=== PATIENT | male | born 1960 | race Caucasian/White ===

== ENCOUNTER 2019-11-28 11:15 | Emergency (ER) | payer OTHER, SELFPAY ==
[2019-11-28 11:29] VITALS: BP 160/104; PULSE 81; RESP 16; TEMP 36.9; O2SAT 98; BMI 33.4
--- NOTE | 2019-11-28 11:43 | ED_ITS ---
HPI - General Adult <EUN PichardoP - Last Filed: 11/28/19 12:43> General Chief complaint: Hypertension Stated complaint: High BP, 159/109 last reading Time Seen by Provider: 11/28/19 11:26 Source: patient Mode of arrival: Family Vehicle Limitations: no limitations History of Present Illness HPI narrative: This is a 59-year-old female, nonsmoker, who has history of hypertension presents to ED with his significant other with concerns for elevated blood pressure. Patient reports this morning he checked his blood pressure and saw reading as 159/105 and got him real concerned. Patient usually takes his blood pressure medication eye cruzito started at evening time and decided to take additional dose 1 hour ago before coming into ED. patient denies chest pain, breathing difficulty, stroke-like symptoms, recent weight gain or leg swelling, dizziness but mild temporal headache. Patient denies vision changes, fever, chills, nausea or vomiting. Patient reports he had steak dinner last night and probably he had taken additional salt intake. Related Data Home Medications Medication Instructions Recorded Confirmed irbesartan 75 mg PO DAILY 11/28/19 11/28/19 Allergies Allergy/AdvReac Type Severity Reaction Status Date / Time No Known Drug Allergies Allergy Verified 11/28/19 11:38 Review of Systems <Domenico HurtRoxannaCAROLE Naidu - Last Filed: 11/28/19 12:43> Review of Systems Narrative: General: Denies fever, chills, fatigue, malaise, sweats. HEENT: Denies sinus pain, ear pain, sore throat, difficulty swallowing, dizziness. Respiratory: Denies dyspnea, cough, wheezing, hemoptysis, sputum. Cardiovascular: Denies chest pain, palpitations, orthopnea, edema. Gastrointestinal: Denies nausea, vomiting, abdominal pain, diarrhea, constipation, melena. : Denies dysuria, frequency, incontinence, hematuria, urinary retention. Musculoskeletal: Denies weakness, joint pain or bony pain. Skin: Denies rash, skin lesions, or other. Neurologic: Denies weakness, (+) mild temporal headache, numbness, change in speech, confusion, seizures, incoordination. Psychiatric: No concerning psychosocial issues. 12-point review of systems is negative except for those stated above. Patient History <CAROLE Pichardo - Last Filed: 11/28/19 12:43> Medical History (Updated 11/28/19 @ 12:35 by CAROLE Pichardo) Hypertension (Acute) Social History Smoking Status: Never smoker Smoking Status: Never smoker alcohol intake frequency: 0-2 drinks per day Substance Use Type: does not use Exam <CAROLE Pichardo - Last Filed: 11/28/19 12:43> Narrative Exam Narrative: GEN: Alert, oriented x 3, well appearing and nourished, and in no acute distress. Head: Normal cephalic, atraumatic. No scalp or temporal tenderness, palpable mass or rash. EYES: Pupils are equal, round, and reactive to light and accommodation. Extraocular muscles are intact bilaterally. There is no subconjunctival hemorrhage, exudate and sclera non-icteric. ENT: Hearing grossly intact. Nose without bleeding, purulent discharge, septal hematoma or deviation. Turbinate without erythema or swelling. Facial sinuses nontender to palpate. Mucous membrane moist, no mucosal lesion. Throat without erythema, tonsillar hypertrophy or exudate. Uvula in midline, airway patent. Neck: Trachea in midline. No JVD, non-tender without lymphadenopathy. No masses or thyroid megaly. Supple, non-tender and no meningeal signs. CARDIAC: Normal regular rate and rhythm without murmurs, gallops, or rubs. No chest wall tenderness. No peripheral edema, cyanosis or pallor. Capillary refill is less than 2 seconds. No carotid bruits. RESPIRATORY: Lungs are cleat to auscultate bilaterally. No cough, wheezes, rales, or rhonchi. No stridor, respiratory distress, increase work of breathing, or accessary muscle used. ABD: Abdomen soft, nontender and non-distended. No guarding or rebound tenderness to palpate. Bowel sounds are normal in all 4 quadrants. There is no palpable masses or organomegaly. EXT: Full painless ROM of all extremities with no loss of sensation, strength, effusion or edema. SKIN: Warm, dry, normal color for patient. No erythema, lesions or rash. BACK: Nontender without deformity or crepitance. No flank tenderness. NEUROLOGICAL: Alert and oriented to place, time and person. No facial droops, dysphasia. CN II-XII intact. Strength and sensation symmetric and intact throughout. Reflexes 2+ throughout. Cerebellar testing normal. PSYCHIATRIC: Good judgement and reason, without hallucinations, abnormal affect or abnormal behaviors during the examination. Patient is not suicidal. Initial Vital Signs Initial Vital Signs: Vital Signs Temperature 98.5 F 11/28/19 11:29 Pulse Rate 81 11/28/19 11:29 Respiratory Rate 16 11/28/19 11:29 Blood Pressure 160/104 H 11/28/19 11:29 Pulse Oximetry 98 11/28/19 11:29 <Ebenezer Katz MD - Last Filed: 11/29/19 08:04> Initial Vital Signs Initial Vital Signs: Vital Signs Temperature 98.5 F 11/28/19 11:29 Pulse Rate 81 11/28/19 11:29 Respiratory Rate 16 11/28/19 11:29 Blood Pressure 160/104 H 11/28/19 11:29 Pulse Oximetry 98 11/28/19 11:29 Scores <CAROLE Pichardo - Last Filed: 11/28/19 12:43> GCS [place] coma scale eye opening: Spontaneous William coma scale verbal response: Orientated William coma scale motor response: Obey commands Merr[place] coma scale total score: 15 Course <CAROLE Pichardo - Last Filed: 11/28/19 12:43> Orders Ordered: ED Orders 11/28/19 11:43 EKG-12 Lead Stat Vital Signs Vital signs: Vital Signs - 8 hr 11/28/19 11:29 11/28/19 12:00 11/28/19 12:32 Temperature 98.5 F Pulse Rate 81 78 79 Respiratory Rate 16 20 12 Blood Pressure 160/104 H Blood Pressure [Left Arm] 136/86 131/89 Pulse Oximetry 98 96 96 <Ebenezer Katz MD - Last Filed: 11/29/19 08:04> Orders Ordered: ED Orders 11/28/19 11:43 EKG-12 Lead Stat Vital Signs Vital signs: Vital Signs - 8 hr 11/28/19 11:29 11/28/19 12:00 11/28/19 12:32 Temperature 98.5 F Pulse Rate 81 78 79 Respiratory Rate 16 20 12 Blood Pressure 160/104 H Blood Pressure [Left Arm] 136/86 131/89 Pulse Oximetry 98 96 96 Medical Decision Making <CAROLE Pichardo - Last Filed: 11/28/19 12:43> Differential Diagnosis Differential Diagnosis: Hypertension Medical Records Medical records reviewed: Yes I reviewed the patient's medical records. ECG Data Attestation: I personally reviewed and interpreted this ECG as follows: Prior ECG tracings: not available for review Interpretation: Sinus rhythm rate at 79. Normal [place]. [place] interval 156, QRS duration 90, QT/QTC 388 /444. No acute ST changes MDM Narrative Medical decision making narrative: This is a 59-year-old male who presents to ED with concerns for elevated blood pressure up to 159/105 at home when he monitored this morning. Patient states he monitors his blood pressure randomly about 2 to 3 times a week. Patient had taken additional dose of Irbersartan this morning before coming into ED. patient denies cardiac or neurological symptoms but mild temporal headache. EKG is sinus rhythm. Patient's blood pressure has improved to 131/89 in about an hour during ED stay. We discussed in detail about not treating elevated blood pressure without cardiac symptoms and his blood pressure is not in the level of hypertensive crisis. Patient advised to monitor his blood pressure and log before next follow-up with his primary care physician whether his blood pressure medication needs to be adjusted. We also discussed decrease sodium intake and losing weight to manage elevated blood pressure along the pharmacological treatment. Return precautions were discussed with patient and Patient verbalized understanding and agreement with the treatment plan. Discharge Plan Departure Patient Disposition: Home Clinical Impression: Hypertension Qualifiers: Hypertension type: unspecified Qualified Code(s): I10 - Essential (primary) hypertension Discharge Date/Time: 11/28/19 12:41 Instructions: DI for High Blood Pressure Activity Restrictions/Additional Instructions: You have been diagnosed with [elevated blood pressure without cardiac symptoms. Blood pressure has improved while in ED. EKG is normal sinus rhythm]. What to do: *Take your medications as directed. *Follow up with your primary care provider in 2-3 days, call for an appointment. Let them know you were seen in the ED and that we asked you to be seen in follow up. As we discussed, monitor your blood pressure around same time of the day and log these readings and to bring this to next appointment with her primary care physician. *Return to ED if you have any new, worsening, or concerning symptoms, such as [chest pain, breathing difficulty, unable to tolerate fluids, dizziness, vision changes, severe headache, symptoms of stroke, or any acute concerns]. Prescriptions: No Action irbesartan 75 mg tablet 75 mg PO DAILY RF: 0 Referrals: Mary Forrest ARNP [Primary Care Provider] -
[2019-11-28 12:00] VITALS: BP 136/86; PULSE 78; RESP 20; O2SAT 96
[2019-11-28 12:32] VITALS: BP 131/89; PULSE 79; RESP 12; O2SAT 96
== END 2019-11-28 12:41 | disposition home or self-care (01) ==
PROVIDERS: Emergency Provider Nurse Practitioner Family; PCP Internal Medicine
DX: I10 Essential (primary) hypertension (principal)
CPT/HCPCS: 93005; 99282; 99283

== ENCOUNTER → 2020-08-22 07:45 | Outpatient (CLI) | payer OTHER, SELFPAY ==
--- NOTE | 2020-08-22 | DI.ECHO.S_ITS ---
[place] [facility]---------+ [facility] +---------+ : : [address] : : : : [id number] : : : : Phone: [phone] Echocardiogram Report + + :Name: JAKE FUNG Study Date: 08/22/2020 Height: 73 in : :[facility] ReadingLocation: Weight: 255 lb : : Gender: Male BSA: 2.4 m2 : :: 1960 Age: 60 yrs BP: 135/85 mmHg: :Reason For Study: HYPERTENSION : :Ordering Physician: EMA, : :MAIA Performed By: Radha Bradshaw : :Referring: MAIA BOO : + + Interpretation Summary The left ventricle is normal in size. The ejection fraction is estimated to be 60-65%. The right ventricle is mildly dilated. The right ventricular systolic function is normal. No significant valvular pathology seen. Procedure: A two-dimensional transthoracic echocardiogram with color flow and Doppler was performed. The study quality was technically adequate. There is no prior echocardiogram noted for this patient. A contrast injection of Definity was performed to improve assessment of LV function. The patient was in sinus rhythm with heart rates between 78-92 bpm during the exam. Left Ventricle: The left ventricle is normal in size. Left ventricular wall thickness is mildly increased. There is no thrombus. The ejection fraction is estimated to be 60-65%. There are no focal wall motion abnormalities. Diastolic parameters suggest probable normal left ventricular diastolic function and normal filling pressures. Right Ventricle: The right ventricle is mildly dilated. The right ventricular systolic function is normal. Atria: The left atrium is mildly dilated. Right atrial size is normal. There is no Doppler evidence for an interatrial shunt. Mitral Valve: There is mild mitral annular calcification. There is trace mitral regurgitation. Aortic Valve: The aortic valve is trileaflet. The aortic valve opens well. There is no aortic valve stenosis. No aortic regurgitation is present. Tricuspid Valve: The tricuspid valve is normal in structure and function. Pulmonary artery pressures cannot be estimated because of the lack of a measurable TR jet velocity but the IVC suggests a CVP of around 3 mmHg. There is trace tricuspid regurgitation. Pulmonic Valve: The pulmonic valve is not well seen, but is grossly normal. There is no pulmonic valvular regurgitation. Great Vessels: The aortic root is normal size. The dimensions of the ascending aorta are normal. The IVC is of normal diameter and collapses greater than 50% with a sniff. This suggests a low right atrial pressure of 3 mm Hg. Pericardium/ Pleura There is no pericardial effusion. There is an anterior echo-free space consistent with a fat pad. There is no pleural effusion. MMode/2D Measurements & Calculations LVIDd: 4.7 cm LVOT diam: 2.0 cm LVIDs: 3.0 cm Ao root diam: 3.1 cm FS: 36.0 % asc Aorta Diam: 2.9 cm EPSS: 0.67 cm Ao Arch Diam (Prox Trans): 2.7 cm IVSd: 1.2 cm LVPWd: 1.1 cm LV vidales. diameter/BSA (cm/m^2): 2.0 LV sys. diameter/BSA (cm/m^2): 1.3 LA A2 area: 24.9 cm2 RA long axis: 5.0 cm LA A4 area: 24.4 cm2 RA area: 16.8 cm2 LA length (vol): 6.2 cm RA vol: 48.2 ml LA vol: 83.2 ml RA : 20.2 ml/m2 LA vol index: 34.9 ml/m2 IVC diam: 1.6 cm RVD1 (basal): 4.3 cm TAPSE: 1.7 cm Doppler Measurements & Calculations Ao V2 max: 125.1 cm/sec LVOT Max Guillermo: 131.9 cm/sec Ao V2 mean: 92.7 cm/sec LV V1 max P.0 mmHg Ao max P.3 mmHg LV V1 VTI: 23.8 cm Ao mean P.7 mmHg MADISYN(I,D): 2.9 cm2 Ao V2 VTI: 24.6 cm MADISYN(V,D): 3.2 cm2 sev ratio: 0.97 MADISYN indexed to BSA (cm^2/m^2): 1.2 MV E max guillermo: 67.9 cm/sec PA V2 max: 103.0 cm/sec Med Peak E' Guillermo: 7.7 cm/sec PA V2 mean: 70.0 cm/sec E/E' med: 8.8 PA mean P.2 mmHg Lat Peak E' Guillermo: 10.9 cm/sec PA pr(Accel): 32.8 mmHg E/E' lat: 6.2 E/e' average: 7.5 MV dec time: 0.16 sec SVLVOT): 71.8 ml Reading Physician:05:47 PM
== END ==
PROVIDERS: PCP Internal Medicine; Referring Provider Internal Medicine; Visit Provider Internal Medicine Cardiovascular Disease
DX: I10 Essential (primary) hypertension (principal)
CPT/HCPCS: 93306; C8929; Q9957

== ENCOUNTER → 2020-09-15 14:55 | Outpatient (CLI) | payer OTHER, SELFPAY ==
[2020-09-15] MEDS: COVID-19 VACC, Ad26(JANSSEN)/PF 0.5 ML IM (15:01)
== END ==
PROVIDERS: PCP Internal Medicine; Visit Provider Internal Medicine
DX: Z23 Encounter for immunization (principal)
CPT/HCPCS: 0031A; 91303

== ENCOUNTER → 2020-11-14 16:19 | Outpatient (CLI) | payer OTHER, SELFPAY ==
--- NOTE | 2020-11-14 | DI.US.S_ITS ---
PROCEDURE: US PERIPH VENOUS LOW EXTREM LT INDICATIONS: Redness and swelling of the left calf and ankle. Clinical concern for DVT TECHNIQUE: Real-time imaging, as well as color and pulse Doppler interrogation, were performed of the lower extremity deep veins from the inguinal ligament to the popliteal fossa. COMPARISON: None. FINDINGS: The common femoral, femoral and popliteal veins are normally compressible, and free of intraluminal thrombus. Color and pulse Doppler demonstrate normal phasic intraluminal flow. There is normal augmentation response to distal compression maneuver. IMPRESSION: Negative for deep venous thrombosis. Dictated by: Adalid Mooney M.D. on 11/14/2020 at 16:24 Approved by: Adalid Mooney M.D. on 11/14/2020 at 16:24
== END ==
PROVIDERS: PCP Internal Medicine; Referring Provider Internal Medicine; Visit Provider Internal Medicine
DX: M79.662 Pain in left lower leg (principal)
CPT/HCPCS: 93971

== ENCOUNTER → 2020-12-28 16:27 | Outpatient (CLI) | payer OTHER, SELFPAY ==
[2020-12-28 17:28] LABS: COVID19 -Nasal RAPID Negative (Negative)
== END ==
PROVIDERS: PCP Internal Medicine; Referring Provider Physician Assistant; Visit Provider Physician Assistant
DX: Z20.822 Contact with and (suspected) exposure to COVID-19 (principal)
CPT/HCPCS: 87635

== ENCOUNTER → 2021-05-22 16:22 | Outpatient (CLI) | payer OTHER, SELFPAY ==
[2021-05-22 17:00] LABS: COVID19 -Nasal RAPID POSITIVE (Negative)
== END ==
PROVIDERS: PCP Internal Medicine; Visit Provider Physician Assistant
DX: Z20.822 Contact with and (suspected) exposure to COVID-19 (principal)
CPT/HCPCS: 87635

== ENCOUNTER → 2022-05-03 11:58 | Outpatient (CLI) | payer OTHER, SELFPAY ==
[2022-05-03 13:38] LABS: Influenza A - CEPHEID Flu A NEGATIVE (NEGATIVE); Influenza B - CEPHEID Flu B NEGATIVE (NEGATIVE); Respiratory Syncytial Virus Negative (Negative)
[2022-05-03 13:39] LABS: COVID-19 CEPHEID 4-PLEX PCR Negative (Negative)
== END ==
PROVIDERS: PCP Internal Medicine; Visit Provider Physician Assistant
DX: R05.9 Cough, unspecified (principal); J02.9 Acute pharyngitis, unspecified
CPT/HCPCS: 0241U; 87070

== ENCOUNTER → 2023-02-25 16:29 | Outpatient (CLI) | payer OTHER, SELFPAY ==
--- NOTE | 2023-02-25 | DI.RAD.S_ITS ---
PROCEDURE: XR SHOULDER RT MIN 2V INDICATIONS: PAIN TECHNIQUE: 3 views of the shoulder were acquired. COMPARISON: None. FINDINGS: Bones: No fractures or dislocations. No suspicious bony lesions. Visualized ribs appear intact. Soft tissues: No suspicious soft tissue calcifications. IMPRESSION: No evidence acute bony abnormality. If clinical suspicion and/or symptoms persist, further assessment with repeat plain films, or advanced imaging (e.g., CT, MRI, or bone scan) may be helpful for further assessment. Dictated by: Flaco Willams M.D. on 02/25/2023 at 17:40 Approved by: Flaco Willams M.D. on 02/25/2023 at 17:41
== END ==
PROVIDERS: PCP Internal Medicine; Referring Provider Internal Medicine; Visit Provider Internal Medicine
DX: M25.511 Pain in right shoulder (principal)
CPT/HCPCS: 73030

== ENCOUNTER → 2023-05-07 09:19 | Outpatient (CLI) | payer OTHER, SELFPAY ==
[2023-05-07 10:30] LABS: COVID-19 CEPHEID 4-PLEX PCR POSITIVE (Negative); Influenza A - CEPHEID Flu A NEGATIVE (NEGATIVE); Influenza B - CEPHEID Flu B NEGATIVE (NEGATIVE); Respiratory Syncytial Virus Negative (Negative)
== END ==
PROVIDERS: PCP Internal Medicine; Visit Provider Nurse Practitioner Family
DX: R05.1 Acute cough (principal)
CPT/HCPCS: 0241U

== ENCOUNTER → 2024-12-13 13:11 | Outpatient (CLI) | payer OTHER, SELFPAY ==
--- NOTE | 2024-12-13 13:12 | DI.US.S_ITS ---
PROCEDURE: US THYROID INDICATIONS: SUBCLINICAL HYPERTHYROIDISM TECHNIQUE: Real-time scanning was performed of the thyroid gland, with image documentation. COMPARISON: None. FINDINGS: Thyroid: Right lobe measures 6.3 x 4.1 x 4.4 cm. Left lobe measures 4.1 x 1.2 x 1.3 cm. Isthmus is 0.3 cm thick. Echotexture is heterogeneous. Nodule number: 1 Location: Right lobe Size: 5.3 x 4.1 x 4.4 cm. Composition: Mixed cystic and solid Echogenicity: Hypoechoic Shape: wider than tall. Margins: Smooth Echogenic foci: None Total points: 3 ACR TI-RADS category: TI-RADS 3 (mildly suspicious) IMPRESSION: Right thyroid 5.3 cm mildly suspicious nodule. Recommend ultrasound-guided fine needle aspiration per ACR guidelines below if not already performed. ACR TI-RADS definitions and recommendations: TI-RADS 1 (benign): 0 points. FNA not needed. TI-RADS 2 (not suspicious): 2 points. FNA not needed. TI-RADS 3: 3 points. * FNA if 2.5 cm or larger, follow up if 1.5 cm or larger (at 1, 3, and 5 years). TI-RADS 4: 4-6 points. * FNA if 1.5 cm or larger, follow up if 1 cm or larger (at 1, 2, 3, and 5 years). TI-RADS 5: 7 points or more. * FNA if 1 cm or larger, follow up if 0.5 cm or larger (every year for 5 years). Approved by: Kristi Valles M.D.,Ph.D. on 12/15/2024 at 8:27
== END ==
PROVIDERS: PCP Internal Medicine; Referring Provider Internal Medicine; Visit Provider Registered Nurse
DX: E05.90 Thyrotoxicosis, unspecified without thyrotoxic crisis or storm (principal); E04.1 Nontoxic single thyroid nodule
CPT/HCPCS: 76536